=== PATIENT | female | born 1970 | race Caucasian/White ===

== ENCOUNTER → 2024-08-11 16:05 | Outpatient (CLI) | payer OTHER, SELFPAY ==
--- NOTE | 2024-08-11 16:10 | DI.ECHO.S_ITS ---
[place] +---------+ [facility] : : [address] : : [place] : : [id number] : : Phone: [phone] Echocardiogram Report + + :Name: ARMIN REAL Study Date: 08/11/2024 Height: 65 in : :[facility] ReadingLocation: Weight: 160 lb : : Gender: Female BSA: 1.8 m2 : :: 1970 Age: 54 yrs BP: 128/98 mmHg: :Reason For Study: PALPITATIONS : :Ordering Physician: FREYA : :MERON Performed By: Alfonso Sykes : :Referring: MERON PILLAI : + + Interpretation Summary Left ventricular systolic function is mildly reduced. The ejection fraction is estimated to be 45-50%. There are no obvious focal wall motion abnormalities noted but poor endocardial definition reduces the sensitivity for the detection of such. Consider repeat limited study with Definity contrast. There is no significant valvular heart disease. Procedure: A two-dimensional transthoracic echocardiogram with color flow and Doppler was performed. The study quality was technically adequate. There is no prior echocardiogram noted for this patient. The patient was in normal sinus rhythm during the exam. Left Ventricle: The left ventricle is normal in size. Left ventricular wall thickness is mildly increased. There is no ventricular septal defect visualized. Left ventricular systolic function is mildly reduced. The ejection fraction is estimated to be 45-50%. There are no obvious focal wall motion abnormalities noted but poor endocardial definition reduces the sensitivity for the detection of such. Diastolic parameters suggest a relaxation abnormality of the left ventricle, consistent with probable normal filling pressures. Right Ventricle: The right ventricle is mildly dilated. The right ventricular systolic function is normal. Atria: The left atrial size is normal. Right atrial size is normal. There is no Doppler evidence for an interatrial shunt. Mitral Valve: The mitral valve leaflets appear normal. There is no evidence of stenosis, fluttering, or prolapse. There is no mitral regurgitation noted. Aortic Valve: The aortic valve is grossly normal. The aortic valve is not well visualized. No aortic regurgitation is present. Tricuspid Valve: The tricuspid valve leaflets are thin and pliable. There is a trace or physiologic amount of tricuspid regurgitation. Pulmonic Valve: The pulmonic valve is not well seen, but is grossly normal. There is no pulmonic valvular regurgitation. Great Vessels: The aortic root is normal size. The ascending aorta could not be visualized. The pulmonary artery is not well visualized, but is probably normal size. The IVC is of normal diameter and collapses greater than 50% with a sniff. This suggests a low right atrial pressure of 3 mm Hg. Pericardium/ Pleura There is no pericardial effusion. There is no pleural effusion. MMode/2D Measurements & Calculations LVIDd: 3.9 cm LVOT diam: 2.2 cm LVIDs: 2.5 cm Ao root diam: 3.5 cm FS: 35.2 % EPSS: 1.3 cm IVSd: 1.2 cm LVPWd: 1.00 cm LV tidwell. diameter/BSA (cm/m^2): 2.2 LV sys. diameter/BSA (cm/m^2): 1.4 LA A2 area: 10.9 cm2 RA long axis: 3.9 cm LA A4 area: 9.8 cm2 RA area: 11.1 cm2 LA length (vol): 3.9 cm RA vol: 27.2 ml LA vol: 23.6 ml RA : 15.1 ml/m2 LA vol index: 13.1 ml/m2 IVC diam: 1.2 cm RVD1 (basal): 4.1 cm RVD2 (mid): 3.3 cm TAPSE: 2.3 cm Doppler Measurements & Calculations Ao V2 max: 121.7 cm/sec LVOT Max Johann: 80.1 cm/sec Ao V2 mean: 87.2 cm/sec LV V1 max P.6 mmHg Ao max P.9 mmHg LV V1 VTI: 14.9 cm Ao mean P.4 mmHg WANDY(I,D): 2.8 cm2 Ao V2 VTI: 19.9 cm WANDY(V,D): 2.4 cm2 sev ratio: 0.75 WANDY indexed to BSA (cm^2/m^2): 1.5 MV E max johann: 54.7 cm/sec PA V2 max: 54.3 cm/sec MV A max johann: 71.6 cm/sec PA V2 mean: 37.9 cm/sec MV E/A: 0.76 PA mean P.63 mmHg Med Peak E' Johann: 7.5 cm/sec PA pr(Accel): 24.2 mmHg E/E' med: 7.3 Lat Peak E' Johann: 7.7 cm/sec E/E' lat: 7.1 E/e' average: 7.2 MV dec time: 0.10 sec SV(LVOT): 54.8 ml Reading Physician:09:44 AM
== END ==
PROVIDERS: Referring Provider Orthopaedic Surgery; Visit Provider Physician Assistant
DX: R00.2 Palpitations (principal)
CPT/HCPCS: 93306